=== PATIENT | male | born 1970 | race Two or more races ===

== ENCOUNTER 2023-06-07 12:06 | Inpatient (IN) | payer MEDICAID, OTHER ==
[~2023-06-07] VITALS: Ht 154.9 cm; Wt 86.5 kg
[2023-06-07] MEDS ORDERED: ASPirin 325 MG TAB PO ONE (12:15)
[2023-06-07] MEDS ORDERED: SODIUM CHLORIDE 0.9% 1,000 ML IV ONE (12:15)
[2023-06-07 13:05] LABS: Amphetamine Screen, Urine Neg (NEGATIVE)
[2023-06-07 13:06] LABS: Barbiturate Scree,Urine Neg (NEGATIVE); Benzodiazephine Screen, Urine Neg (NEGATIVE); Cocaine Screen, Urine Neg (NEGATIVE); Opiate Scree,Urine Neg (NEGATIVE); Phencyclidine Screen, Urine Neg (NEGATIVE)
[2023-06-07 13:07] LABS: Cannabinoid Screen, Urine Neg (NEGATIVE)
[2023-06-07 13:07] LABS: Alanine Aminotransferase 26 U/L (7-40); Albumin 4.4 g/dL (3.2-4.8); Alkaline Phosphatase 84 U/L (46-116); Anion Gap 6.7 (5-15); Aspartate Aminotransferase 16 U/L (13-40); BUN/Creatinine Ratio 11.2 (10.0-20.0); Bilirubin, Total 0.7 mg/dL (0.2-1.0); Blood Urea Nitrogen 11 mg/dL (9-23); Calcium 9.4 mg/dL (8.5-10.1); Carbon Dioxide 23.3 mmol/L (20-30); Chloride 107 mmol/L (98-107); Creatine Kinase IFCC 146 U/L (46-171); Glucose 100 mg/dL (74-106); Magnesium 2.1 mg/dL (1.6-2.6); Potassium 3.8 mmol/L (3.5-5.1); Sodium 137 mmol/L (136-145)
[2023-06-07 13:09] LABS: Urine Bacteria NONE SEEN /hpf (None Seen); Urine Blood Negative /uL (Negative); Urine Clarity Clear (Clear); Urine Protein, UAD Negative (Negative); Urine Specific Gravity 1.005 (1.001-1.035); Urine Urobilinogen Normal (Negative); Urine WBC 1 /hpf (0 - 3); Urine pH 6.5 (5.0-8.0)
[2023-06-07 13:10] LABS: Urine Color Straw (Yellow)
[2023-06-07 13:14] LABS: Basophils # (auto) 0 10 ^3/uL (0-0.2); Basophils % (auto) 0.2 % (0.0-2.0); Eosinophils # (auto) 0 10 ^3/uL (0-0.8); Eosinophils % (auto) 0.2 % (0.0-7.0); Hematocrit 46.1 % (41.0-53.0); Hemoglobin 15.3 g/dL (13.5-17.5); Lymphocytes # (auto) 0.9 10 ^3/uL (0.4-5.4); Lymphocytes % (auto) 8.1 % (10.0-50.0); Mean Corpuscular Hemoglobin 30.1 pg (28.0-32.0); Mean Corpuscular Hgb Conc. 33.3 g/dL (32.0-36.0); Mean Corpuscular Volume 90.4 fL (80.0-100.0); Monocytes # (auto) 0.7 10 ^3/uL (0-1.3); Monocytes % (auto) 6.1 % (0.0-12.0); Neutrophils # (auto) 9.5 10 ^3/uL (1.6-8.6); Neutrophils % (auto) 85.4 % (37.0-80.0); Red Blood Cells 5.09 10^6/uL (4.5-5.90); Red Cell Distribution Width 13.9 % (11.8-14.3); White Blood Cell 11.1 10^3/uL (4.4-10.8)
[2023-06-07] MEDS ORDERED: MORPHINE SULFATE INJ 2 MG/ml SYRG IV PRN (15:15)
[2023-06-07] MEDS ORDERED: NITROGLYCERIN 0.4 MG SL TAB SL PRN (15:15)
[2023-06-07] MEDS ORDERED: ACETAMINOPHEN 325 MG TAB PO PRN (15:15)
[2023-06-07] MEDS ORDERED: ENOXAPARIN SOD 40 MG/0.4 ML SYRINGE SC ONE (15:30)
[2023-06-07 16:30] VITALS: PULSE 72; RESP 14; O2SAT 98
[2023-06-07] MEDS: SODIUM CHLORIDE 0.9% 1,000 ML IV SCH (16:30)
[2023-06-07 16:48] LABS: Triglycerides 111 mg/dL (< 150)
[2023-06-07 16:49] LABS: LDL Cholesterol 82 mg/dL (< 100)
[2023-06-07 16:50] LABS: Cholesterol 145 mg/dL (< 200); HDL Cholesterol 49 mg/dL (40-59)
[2023-06-07 19:45] VITALS: PULSE 77; RESP 16; O2SAT 97
[2023-06-08 05:49] LABS: Basophils # (auto) 0 10 ^3/uL (0-0.2); Basophils % (auto) 0.4 % (0.0-2.0); Eosinophils # (auto) 0.1 10 ^3/uL (0-0.8); Eosinophils % (auto) 2.3 % (0.0-7.0); Hematocrit 42.7 % (41.0-53.0); Hemoglobin 14.3 g/dL (13.5-17.5); Lymphocytes # (auto) 1.5 10 ^3/uL (0.4-5.4); Lymphocytes % (auto) 31.8 % (10.0-50.0); Mean Corpuscular Hemoglobin 30.6 pg (28.0-32.0); Mean Corpuscular Hgb Conc. 33.5 g/dL (32.0-36.0); Mean Corpuscular Volume 91.5 fL (80.0-100.0); Monocytes # (auto) 0.5 10 ^3/uL (0-1.3); Monocytes % (auto) 9.8 % (0.0-12.0); Neutrophils # (auto) 2.6 10 ^3/uL (1.6-8.6); Neutrophils % (auto) 55.7 % (37.0-80.0); Nucleated Red Blood Cells % 0.1 %; Red Blood Cells 4.67 10^6/uL (4.5-5.90); Red Cell Distribution Width 13.9 % (11.8-14.3); White Blood Cell 4.7 10^3/uL (4.4-10.8)
[2023-06-08 06:20] LABS: Alanine Aminotransferase 18 U/L (7-40); Albumin 3.9 g/dL (3.2-4.8); Alkaline Phosphatase 72 U/L (46-116); Anion Gap 5.6 (5-15); Aspartate Aminotransferase 16 U/L (13-40); BUN/Creatinine Ratio 11.5 (10.0-20.0); Blood Urea Nitrogen 10 mg/dL (9-23); Calcium 8.7 mg/dL (8.5-10.1); Carbon Dioxide 25.4 mmol/L (20-30); Chloride 107 mmol/L (98-107); Glucose 101 mg/dL (74-106); Potassium 3.9 mmol/L (3.5-5.1); Sodium 138 mmol/L (136-145)
[2023-06-08 06:21] LABS: Bilirubin, Total 0.5 mg/dL (0.2-1.0); Total Protein 6.3 g/dL (5.7-8.2)
[2023-06-08 07:40] VITALS: RESP 14; O2SAT 98
[2023-06-08] MEDS: SODIUM CHLORIDE 0.9% 1,000 ML IV SCH (07:55)
[2023-06-08] MEDS ORDERED: ASPirin 81 mg TAB PO SCH (10:00)
[2023-06-08] MEDS ORDERED: ENOXAPARIN SOD 40 MG/0.4 ML SYRINGE SC SCH (10:00)
[2023-06-08 10:35] VITALS: BP 155/99; PULSE 65
[2023-06-08] MEDS ORDERED: METOPROLOL TARTRATE 25 MG TAB PO SCH (11:15)
[2023-06-08 13:00] VITALS: BP 147/104; PULSE 70; RESP 18; TEMP 98.2; O2SAT 97
[2023-06-08 14:13] LABS: CRP High Sensitivity 0.29 mg/dL (<1.0)
[2023-06-08] MEDS ORDERED: MET25T PO (14:23)
[2023-06-08] MEDS ORDERED: ASPI-325 PO (14:23)
[2023-06-09 12:18] LABS: Hepatitis C Antibody Negative (Negative)
[2023-06-09 15:41] LABS: Hepatitis B Surface Antigen Negative (Negative)
== END 2023-06-08 16:46 | disposition home or self-care (01) | DRG 201 ==
LOC: ER 12:06 → EDBD 12:06 → TELE 15:17 → TELE-WESTW 06-08 10:20
PROVIDERS: ADMIT Nurse Practitioner Family; ATTEND Nurse Practitioner Acute Care
DX: I47.1 Supraventricular tachycardia (principal); I21.A1 Myocardial infarction type 2; D72.829 Elevated white blood cell count, unspecified; I10 Essential (primary) hypertension; E66.01 Morbid (severe) obesity due to excess calories; Z79.82 Long term (current) use of aspirin; Z79.899 Other long term (current) drug therapy; Z68.36 Body mass index [BMI] 36.0-36.9, adult; Z72.0 Tobacco use
CPT/HCPCS: 36415; 71045; 80053; 80061; 80307; 81001; 82550; 83605; 83735; 83880; 84443; 84484; 85025; 86141; 86803; 87340; 93005; 93306; 96360; 96372; G0378